=== PATIENT | female | born 1985 | race Caucasian/White ===

== ENCOUNTER 2017-11-03 21:06 | Inpatient (IN) ==
[2017-11-03] MEDS ORDERED: 0.9 % Sodium Chloride 1,000 ML IVC ONE (21:11)
--- NOTE | 2017-11-03 21:20 | Emergency Department Note ---
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 I agree with the documented findings, disposition and treatment plan as described except to the extent set forth below. ED attending note: Patient seen with emergency medicine resident Dr. Daniel Fowler. We independently evaluated the patient. We independently had face-to- face contact with the patient. Please see a copy of his note for details of the history and physical, evaluation, management and disposition of this emergency Department patient. Briefly: 31-year-old female brought in by EMS after being found new running around in her house or outside of her home with her dog lying on the grass. When EMS came she try to run away. She was apprehended quickly she was cooperative IV was started. Does have history of methamphetamine abuse in the past. Of which because of that she has had custody of her son taken from her. Patient will be medically cleared and evaluated by mental health services. Disposition pending Time: 21:19
[2017-11-03 21:37] LABS: Basophils % 0.2 %; Eosinophils % 0.4 %; Hematocrit 37.7 % (35.3-44.9); Hemoglobin 13.2 g/dL (11.5-15.4); Immature Granulocytes % 0.4 % (0-4); Lymphocytes # 2.3 K/mcL (0.6-4.6); Mean Corpuscular Hemoglobin 31.4 pg (28.0-33.3); Mean Corpuscular Volume 89.8 fL (83.0-100.0); Mean Platelet Volume 10.2 fL (9.4-12.4); Monocytes # 0.7 K/mcL (0.0-1.3); Monocytes % 8.7 %; Neutrophils # 5.3 K/mcL (1.6-8.9); Platelet Count 291 K/mcL (140-400); Red Cell Distribution Width 12.6 % (11.5-14.5); Segmented Neutrophils % 63.3 %
[2017-11-03 21:53] LABS: Acetaminophen < 10 mcg/mL (10-20); BUN/Creatinine Ratio 27 (6-26); Blood Urea Nitrogen 18 mg/dL (6-20); Calcium 8.6 mg/dL (8.6-10.3); Carbon Dioxide 19 mEq/L (23-29); Chloride 109 mEq/L (98-107); Ethanol < 10 mg/dL (Less than 10); Glucose 93 mg/dL (70-105); Osmolality,Calculated 290 (280-300); Potassium 3.6 mEq/L (3.5-5.1); Salicylate < 2.5 mg/dL (15.0-30.0); Sodium 139 mEq/L (136-145); eGFR For African Americans > 60 (> 60); eGFR For Non-African Americans > 60 (> 60)
[2017-11-03 22:04] LABS: Bilirubin,Urine Negative (Negative); Blood,Urine Large (Negative); Clarity,Urine Turbid (Clear); Color,Urine Yellow (Yellow); Glucose,Urine (UA) Normal (Normal); Ketones,Urine >=160 mg/dL (Negative); Leukocyte Esterase,Urine Trace (Negative); Nitrite,Urine Negative (Negative); PH,Urine 5.5 pH Units (5.0-8.0); Protein,Urine 30 mg/dL (Neg-Trace); Specific Gravity,Urine > 1.030 (1.010-1.025); Urobilinogen,Urine Normal (Normal)
[2017-11-03 22:06] LABS: Bacteria,Urine Moderate per hpf (None-Few); Hyaline Casts,Urine Few per lpf (None-Few); Squamous Epithelial Cell,Urine Many per lpf (None-Few)
--- NOTE | 2017-11-03 22:14 | Emergency Department Note ---
Disposition Clinical Impression: Substance abuse Disposition: Still a Patient Referrals: NONE,PCP [Primary Care Provider] - Forms: ED Satisfaction Letter General Adult HPI - General Chief complaint: ED Altered Mental Status Stated complaint: AMS Time Seen by Provider: 11/03/17 21:11 Source: patient, EMS Mode of arrival: EMS Limitations: no limitations Nursing Notes Reviewed: Yes Vital Signs Reviewed: Yes - History of Present Illness HPI Narrative: 32-year-old female presents via EMS for concerns of altered mental status. Per reports from EMS patient was found naked in front of her house by [place]. Supposedly when the patient saw the deputies she got up and ran but was stopped. Patient was requested to put on closed. Concern for substance abuse. Patient does recall the events today and states that she is been tired over the past several days and was sleeping. She denies any alcohol or recreational drug use today. She admits to using ice 2 days ago. Patient has a history of methamphetamine abuse evident by her child be taken away from her. She denies any suicidal or homicidal ideations. She denies any hallucinations. She denies any injury or pain at this time. Pain Scale: 0 - Related Data Previous Rx's Medication Instructions Recorded Orphenadrine [Norflex] 100 mg PO Q12HR PRN #10 tablet.er 04/15/17 Allergies Allergy/AdvReac Type Severity Reaction Status Date / Time No Known Allergies Allergy Verified 04/15/17 07:37 All systems ED: reviewed and negative except as stated. Review of Systems: As Per HPI Constitutional: Denies: fever, chills Cardiovascular: Denies: chest pain Respiratory: Denies: dyspnea Gastrointestinal: Denies: abdominal pain Neurological: Denies: headache Psychiatric: Denies: suicidal thoughts, homicidal thoughts Past Medical History - Past Medical History Attestation: Yes The following information was validated with the patient. 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 Absent : tenderness, rash - Respiratory Respiratory exam: Present: normal lung sounds bilaterally. Absent: respiratory distress, wheezes - Cardiovascular Cardiovascular exam: Present: regular rate, normal rhythm, normal heart sounds - Abdominal Exam Abdominal exam: Present: soft, Non-Tender, normal bowel sounds. Absent: tenderness, distention, guarding, rebound, rigidity - Extremities Exam Extremities exam: Present: normal inspection, full ROM, normal capillary refill. Absent: tenderness, pedal edema - Neurological Exam Neurological exam: Present: alert, oriented X3, CN II-XII intact - Expanded Neurological Exam Patient oriented to: Present: person, place, time Speech: Present: fluid speech Cranial nerves: EOM function (II, III, IV, ): Normal, facial sensation (V): Normal, facial palsy (VII): Normal, gag reflex (IX): Normal, spinal accessory function (XI): Normal, tongue deviation (XII): Normal Motor strength - LUE: 5/5 Motor strength - RUE: 5/5 Motor strength - LLE: 5/5 Motor strength - RLE: 5/5 - Psychiatric Psychiatric exam: Present: normal mood, flat affect. Absent: depressed, anxious , homicidal ideation, suicidal ideation - Skin Skin exam: Present: warm, dry, intact, normal color. Absent: rash, cyanosis, diaphoresis Course Course Narrative: Patient will be evaluated and medically cleared for possible evaluation. She denies any suicidal ideation. She is otherwise awake alert and oriented person place and time. On physical exam is otherwise unremarkable. She has no neck tenderness. She moves all for extremities without difficulty. Patient was amatory to give a urine sample. She is otherwise cooperative at this time. - Reevaluation(s) Reevaluation #1: urinalysis shows ketones and positive blood without RBCs. No signs of renal insufficiency. Will fluid hydrated her with normal saline and also check a CPK. Unsure of how long she has been down on the ground. Otherwise her urine drug screen was positive for amphetamine. Will have the patient evaluated by 1[facility] psychiatry. Time: 22:35 Reevaluation #2: Patient will be signed out to nighttime physician is Dr. Holder and Dr. Ric pending 1A psychiatric evaluation and final disposition. Impression is substance abuse. Vital Signs Temperature 98.4 F 11/03/17 21:15 Pulse Rate 83 11/03/17 21:15 Respiratory Rate 22 11/03/17 21:15 Blood Pressure 120/72 11/03/17 21:15 O2 Sat by Pulse Oximetry 98 11/03/17 21:15 Temperature 98.4 F 11/03/17 21:15 Pulse Rate 83 11/03/17 21:15 Respiratory Rate 22 11/03/17 21:15 Blood Pressure 120/72 11/03/17 21:15 O2 Sat by Pulse Oximetry 98 11/03/17 21:15 Oxygen Delivery Oxygen Delivery Room Air Medical Decision Making - MDM Narrative Medical decision making narrative: Patient was discussed with my attending physician who agrees with ED management and final disposition. They independently evaluated the patient. Please refer to their attestation to this encounter for additional information. This note was generated by [employer] voice recognition software and as a result grammatical or spelling errors may occur using this program. - Medical Records Medical records reviewed: Yes I reviewed the patient's medical records. - Lab Data Lab results reviewed: Yes I reviewed the patient's lab results. Result diagrams: 11/03/17 21:24 11/03/17 21:24 Lab Results 11/03/17 11/03/17 11/03/17 Range/Units 21:24 21:24 21:24 WBC 8.3 (4.3-11.1) K/mcL RBC 4.20 (3.82-4.97) M/mcL Hgb 13.2 (11.5-15.4) g/dL Hct 37.7 (35.3-44.9) % MCV 89.8 (83.0-100.0) fL MCH 31.4 (28.0-33.3) pg MCHC 35.0 (31.6-35.5) g/dL RDW 12.6 (11.5-14.5) % Plt Count 291 (140-400) K/mcL MPV 10.2 (9.4-12.4) fL Immature Gran % 0.4 (0-4) % Seg Neutrophils % 63.3 % Lymphocytes % 27.0 % Monocytes % 8.7 % Eosinophils % 0.4 % Basophils % 0.2 % Neutrophils # 5.3 (1.6-8.9) K/mcL Lymphocytes # 2.3 (0.6-4.6) K/mcL Monocytes # 0.7 (0.0-1.3) K/mcL Eosinophils # 0.0 (0.0-0.6) K/mcL Basophils # 0.0 (0.0-0.2) K/mcL Sodium 139 (136-145) mEq/L Potassium 3.6 (3.5-5.1) mEq/L Chloride 109 H (98-107) mEq/L Carbon Dioxide 19 L (23-29) mEq/L BUN 18 (6-20) mg/dL Creatinine 0.67 (0.60-1.20) mg/dL Est GFR ( Amer) > 60 (> 60) Est GFR (Non-Af Amer) > 60 (> 60) BUN/Creatinine Ratio 27 H (6-26) Glucose 93 (70-105) mg/dL Calculated Osmolality 290 (280-300) Calcium 8.6 (8.6-10.3) mg/dL TSH (0.340-5.600) mcIU/mL Serum , Qual Negative (Negative) Urine Color (Yellow) Urine Clarity (Clear) Urine pH (5.0-8.0) pH Units Ur Specific [place] (1.010-1.025) Urine Protein (Neg-Trace) mg/dL Urine Glucose (UA) (Normal) mg/dL Urine Ketones (Negative) mg/dL Urine Blood (Negative) Urine Nitrite (Negative) Urine Bilirubin (Negative) Urine Urobilinogen (Normal) mg/dL Ur Leukocyte Esterase (Negative) Urine Microscopic RBC (0-3) per hpf Urine Microscopic WBC (0-3) per hpf Ur Squamous Epith Cells (None-Few) per lpf Urine Bacteria (None-Few) per hpf Hyaline Casts (None-Few) per lpf Salicylates < 2.5 L (15.0-30.0) mg/dL Urine Opiates Screen (Bvhvwd=213) ng/mL Acetaminophen < 10 L (10-20) mcg/mL Ur Barbiturates Screen (Xkllqp=990) ng/mL Ur Phencyclidine Scrn (Cutoff=25) ng/mL Ur Amphetamines Screen (Qkjfhx=2052) ng/mL U Benzodiazepines Scrn (Jiqbwt=609) ng/mL Urine Cocaine Screen (Cutoff= 300) ng/mL U Marijuana (THC) Screen (Cutoff = 50) ng/mL Ethyl Alcohol < 10 (Less than 10) mg/dL 11/03/17 11/03/17 11/03/17 Range/Units 21:24 21:50 21:50 WBC (4.3-11.1) K/mcL RBC (3.82-4.97) M/mcL Hgb (11.5-15.4) g/dL Hct (35.3-44.9) % MCV (83.0-100.0) fL MCH (28.0-33.3) pg MCHC (31.6-35.5) g/dL RDW (11.5-14.5) % Plt Count (140-400) K/mcL MPV (9.4-12.4) fL Immature Gran % (0-4) % Seg Neutrophils % % Lymphocytes % % Monocytes % % Eosinophils % % Basophils % % Neutrophils # (1.6-8.9) K/mcL Lymphocytes # (0.6-4.6) K/mcL Monocytes # (0.0-1.3) K/mcL Eosinophils # (0.0-0.6) K/mcL Basophils # (0.0-0.2) K/mcL Sodium (136-145) mEq/L Potassium (3.5-5.1) mEq/L Chloride (98-107) mEq/L Carbon Dioxide (23-29) mEq/L BUN (6-20) mg/dL Creatinine (0.60-1.20) mg/dL Est GFR ( Amer) (> 60) Est GFR (Non-Af Amer) (> 60) BUN/Creatinine Ratio (6-26) Glucose (70-105) mg/dL Calculated Osmolality (280-300) Calcium (8.6-10.3) mg/dL TSH 0.924 (0.340-5.600) mcIU/mL Serum , Qual (Negative) Urine Color Yellow (Yellow) Urine Clarity Turbid A (Clear) Urine pH 5.5 (5.0-8.0) pH Units Ur Specific [place] > 1.030 H (1.010-1.025) Urine Protein 30 H (Neg-Trace) mg/dL Urine Glucose (UA) Normal (Normal) mg/dL Urine Ketones >=160 H (Negative) mg/dL Urine Blood Large H (Negative) Urine Nitrite Negative (Negative) Urine Bilirubin Negative (Negative) Urine Urobilinogen Normal (Normal) mg/dL Ur Leukocyte Esterase Trace H (Negative) Urine Microscopic RBC 0-3 (0-3) per hpf Urine Microscopic WBC 5-15 H (0-3) per hpf Ur Squamous Epith Cells Many H (None-Few) per lpf Urine Bacteria Moderate H (None-Few) per hpf Hyaline Casts Few (None-Few) per lpf Salicylates (15.0-30.0) mg/dL Urine Opiates Screen Negative (Pfvsyf=117) ng/mL Acetaminophen (10-20) mcg/mL Ur Barbiturates Screen Negative (Hkrfai=689) ng/mL Ur Phencyclidine Scrn Negative (Cutoff=25) ng/mL Ur Amphetamines Screen Positive H (Jgalaw=4965) ng/mL U Benzodiazepines Scrn Negative (Jlvnne=057) ng/mL Urine Cocaine Screen Negative (Cutoff= 300) ng/mL U Marijuana (THC) Screen Negative (Cutoff = 50) ng/mL Ethyl Alcohol (Less than 10) mg/dL S.B.A.R. - S.B.A.R. Situation: Demographics, MOA Background: Presenting Complaint, Relevant PMH, Meds, & Allergies Assessment: Vital Signs, Course and respsone to treatment, Exam Concerns, Patient/Family Expectation, Pertinant Lab Results, Outstanding Labs Recommendation: Barrier(s) to disposition, Recommendation based on pending studies, treatments, or consults S.B.A.R. Report Given to: Dr. Holder and Dr. Larios S.B.A.R. Repor Time: 23:00
[2017-11-03 22:15] LABS: Amphetamine Screen,Urine Positive ng/mL (Cutoff=1000); Barbiturate Screen,Urine Negative ng/mL (Cutoff=200); Benzodiazepines Screen,Urine Negative ng/mL (Cutoff=200); Cannabinoid Screen,Urine Negative ng/mL (Cutoff = 50); Cocaine Screen,Urine Negative ng/mL (Cutoff= 300); Opiate Screen,Urine Negative ng/mL (Cutoff=300); Phencyclidine Screen,Urine Negative ng/mL (Cutoff=25)
[2017-11-03 22:16] LABS: RBC,Urine 0-3 per hpf (0-3)
[2017-11-03 23:44] LABS: Creatine Kinase 269 Units/L (30-223)
[2017-11-04] MEDS ORDERED: MOM Conc 10 ML UD.LIQ PO PRN (01:11)
[2017-11-04] MEDS ORDERED: *HR* LORazepam 1 MG TABLET PO PRN (01:11)
[2017-11-04] MEDS ORDERED: *HR* LORazepam 2 MG/ML VIAL IM PRN (01:11)
[2017-11-04] MEDS ORDERED: Haloperidol Lactate 5 MG/ML VIAL IM PRN (01:11)
[2017-11-04] MEDS ORDERED: Mag Hydrox/Al Hydrox/Simeth 30 ML UDC PO PRN (01:11)
--- NOTE | 2017-11-04 11:14 | Psychiatry History & Physical ---
Date of Encounter: 11/04/17 Time of Encounter: 10:35 History of Present Illness Patient Stated Chief Complaint: Altered mental status Medicare Admission Attestation: For traditional Medicare patients the provided hospital inpatient services are reasonable and necessary and in the case of services not specified as inpatient -only under 42 CFR 419.22 (n), that they are appropriately provided as inpatient services in accordance 42 CFR 412.3. For Critical Access Hospital the patient may reasonably be expected to be discharged or transferred to a hospital within 96 hours after admission to the Critical Access Hospital. Admitted From: Emergency Dept History of Present Illness: Ms. Sanon is a 32 year old female admitted from the emergency department with altered mental status. She was brought into the hospital by EMS when she was found lying naked in front of her house, she ran away when the lease out man tried to apprehend her. UDS was positive for methamphetamine. Patient denied any psychiatric history or treatment. She used meth on and off to stay awake. Patient was very guarded did not provide any history information to the nursing staff. She reports to me that she is dealing with multiple stressors including becoming homeless after being kicked out of the house by her ex-, her son who is 17 years old is diagnosed with cancer and live with her mother at this time. She is unemployed and overwhelmed by her current situation and unable to make decisions. She denied any history of suicide or psychiatric treatment. Past Med Surg Social Fam HX - Past Medical History Medical history: arthritis - Past Psychiatric History Psychiatric history: Reports: no psych history - Social History Smoking Status: Current every day smoker Smokeless Tobacco Status: No Alcohol use: occasionally Drug use: none Medications & Allergies Orphenadrine [Norflex] 100 mg PO Q12HR PRN #10 tablet.er 04/15/17 [Rx] 3 Allergy/AdvReac Type Severity Reaction Status Date / Time No Known Allergies Allergy Verified 04/15/17 07:37 Review of Systems Psychiatric: Reports: depression, anxiety, abnormal sleep pattern, anhedonia Exam - HEENT Head exam IM: Present: atraumatic Eye exam IM: Present: EOMI, normal appearance, PERRL ENT exam IM: Present: normal exam - Neurological Neurological exam: Present: CN II-XII intact - Respiratory Respiratory exam IM: Present: CTAB - GI/Abdominal GI/Abdominal exam IM: Present: normal bowel sounds, soft. Absent: tenderness - Extremities Extremities exam IM: Present: full ROM - Skin Skin exam IM: Present: dry, warm - Constitutional Vitals: Temp Pulse Resp BP Pulse Ox 98.6 F 87 16 91/59 98 11/04/17 09:00 11/04/17 09:00 11/04/17 09:00 11/04/17 09:00 11/03/17 21:15 General appearance: age & developmentally appropriate, well-groomed, well- nourished, obese - Musculoskeletal Gait: normal Station: relaxed Strength & Tone: normal for patient - Psychiatric Patient Orientation: Yes Person, Yes Time, Yes Place Level of alertness: Alert, Sedated Behavior: calm, cooperative, anxious, withdrawn Psychomotor activity: Slowed Eye Contact: Minimal Contact Mood Description: Euthymic/stable, Depressed Affect description: congruent with mood, blunted, dysphoric Speech Volume: Normal Speech pattern: normal rate, normal rhythm, normal tone, fluent, slowed, limited Language & Vocabulary: consistent with education Thought Process: Linear, Goal Oriented, Slowed Thinking Thought Content: No Suicidal ideation, No Homicidal ideation, No Overt delusions Perceptual Disturbances: No Auditory hallucinations, No Visual hallucinations Attention Span Ability: Capable of Focused Attention Memory Description: Grossly Intact Patient Reliability: Reliable Historian Fund of knowledge: Yes abstraction ability, Yes average, Yes aware of current events Intelligence Estimate: Average Judgment: Limited Insight: Partial Results - Labs Labs: Laboratory Last Values WBC 8.3 K/mcL (4.3-11.1) 11/03/17 21:24 RBC 4.20 M/mcL (3.82-4.97) 11/03/17 21:24 Hgb 13.2 g/dL (11.5-15.4) 11/03/17 21:24 Hct 37.7 % (35.3-44.9) 11/03/17 21:24 MCV 89.8 fL (83.0-100.0) 11/03/17 21:24 MCH 31.4 pg (28.0-33.3) 11/03/17 21:24 MCHC 35.0 g/dL (31.6-35.5) 11/03/17 21:24 RDW 12.6 % (11.5-14.5) 11/03/17 21:24 Plt Count 291 K/mcL (140-400) 11/03/17 21:24 MPV 10.2 fL (9.4-12.4) 11/03/17 21:24 Immature Gran % 0.4 % (0-4) 11/03/17 21:24 Seg Neutrophils % 63.3 % 11/03/17 21:24 Lymphocytes % 27.0 % 11/03/17 21:24 Monocytes % 8.7 % 11/03/17 21:24 Eosinophils % 0.4 % 11/03/17 21:24 Basophils % 0.2 % 11/03/17 21:24 Neutrophils # 5.3 K/mcL (1.6-8.9) 11/03/17 21:24 Lymphocytes # 2.3 K/mcL (0.6-4.6) 11/03/17 21:24 Monocytes # 0.7 K/mcL (0.0-1.3) 11/03/17 21:24 Eosinophils # 0.0 K/mcL (0.0-0.6) 11/03/17 21:24 Basophils # 0.0 K/mcL (0.0-0.2) 11/03/17 21:24 Sodium 139 mEq/L (136-145) 11/03/17 21:24 Potassium 3.6 mEq/L (3.5-5.1) 11/03/17 21:24 Chloride 109 mEq/L (98-107) H 11/03/17 21:24 Carbon Dioxide 19 mEq/L (23-29) L 11/03/17 21:24 BUN 18 mg/dL (6-20) 11/03/17 21:24 Creatinine 0.67 mg/dL (0.60-1.20) 11/03/17 21:24 Est GFR ( Amer) > 60 (> 60) 11/03/17 21:24 Est GFR (Non-Af Amer) > 60 (> 60) 11/03/17 21:24 BUN/Creatinine Ratio 27 (6-26) H 11/03/17 21:24 Glucose 93 mg/dL (70-105) 11/03/17 21:24 Calculated Osmolality 290 (280-300) 11/03/17 21:24 Calcium 8.6 mg/dL (8.6-10.3) 11/03/17 21:24 Creatine Kinase 269 Units/L (30-223) H 11/03/17 21:24 TSH 0.924 mcIU/mL (0.340-5.600) 11/03/17 21:24 Serum , Qual Negative (Negative) 11/03/17 21:24 Urine Color Yellow (Yellow) 11/03/17 21:50 Urine Clarity Turbid (Clear) A 11/03/17 21:50 Urine pH 5.5 pH Units (5.0-8.0) 11/03/17 21:50 Ur Specific [place] > 1.030 (1.010-1.025) H 11/03/17 21:50 Urine Protein 30 mg/dL (Neg-Trace) H 11/03/17 21:50 Urine Glucose (UA) Normal mg/dL (Normal) 11/03/17 21:50 Urine Ketones >=160 mg/dL (Negative) H 11/03/17 21:50 Urine Blood Large (Negative) H 11/03/17 21:50 Urine Nitrite Negative (Negative) 11/03/17 21:50 Urine Bilirubin Negative (Negative) 11/03/17 21:50 Urine Urobilinogen Normal mg/dL (Normal) 11/03/17 21:50 Ur Leukocyte Esterase Trace (Negative) H 11/03/17 21:50 Urine Microscopic RBC 0-3 per hpf (0-3) 11/03/17 21:50 Urine Microscopic WBC 5-15 per hpf (0-3) H 11/03/17 21:50 Ur Squamous Epith Cells Many per lpf (None-Few) H 11/03/17 21:50 Urine Bacteria Moderate per hpf (None-Few) H 11/03/17 21:50 Hyaline Casts Few per lpf (None-Few) 11/03/17 21:50 Salicylates < 2.5 mg/dL (15.0-30.0) L 11/03/17 21:24 Urine Opiates Screen Negative ng/mL (Hlvkau=898) 11/03/17 21:50 Acetaminophen < 10 mcg/mL (10-20) L 11/03/17 21:24 Ur Barbiturates Screen Negative ng/mL (Nckgve=131) 11/03/17 21:50 Ur Phencyclidine Scrn Negative ng/mL (Cutoff=25) 11/03/17 21:50 Ur Amphetamines Screen Positive ng/mL (Fywoll=6662) H 11/03/17 21:50 U Benzodiazepines Scrn Negative ng/mL (Phnbxe=507) 11/03/17 21:50 Urine Cocaine Screen Negative ng/mL (Cutoff= 300) 11/03/17 21:50 U Marijuana (THC) Screen Negative ng/mL (Cutoff = 50) 11/03/17 21:50 Ethyl Alcohol < 10 mg/dL (Less than 10) 11/03/17 21:24 Assessment and Plan (1) Major depressive disorder, single episode, unspecified Current visit: Yes Status: Acute Plan: Admit inpatient for safety and stabilization, Close observation, Suicide Precautions per unit protocol, Encourage participation in unit milieu, Group Therapy, Monitor sleep, Monitor appetite Risks, benefits, side effects, alternatives discussed w/pt: Yes Patient agreeable to treatment: Yes Estimated Length of Stay (Days): 5 Qualifiers: Qualified Code(s): F32.9 - Major depressive disorder, single episode, unspecified (2) Methamphetamine abuse Current visit: Yes Status: Acute Plan: Admit inpatient for safety and stabilization, Close observation, Suicide Precautions per unit protocol, Encourage participation in unit milieu, Group Therapy, Monitor sleep, Monitor appetite Risks, benefits, side effects, alternatives discussed w/pt: Yes Patient agreeable to treatment: Yes
[2017-11-04] MEDS: Venlafaxine XR (24 HR) 75 MG CAP.ER.24H PO SCH (14:03)
[2017-11-05] MEDS: traZODone 50 MG TABLET PO PRN ×2 (02:45→21:28)
[2017-11-05] MEDS: hydrOXYzine pamoate 25 MG CAPSULE PO PRN ×2 (02:46→21:28)
--- NOTE | 2017-11-05 10:03 | Psychiatry Progress Note ---
Date of Encounter: 11/05/17 Time of Encounter: 10:00 Subjective Interval history: Patient seen for follow-up. Case discussed with nursing staff. She could not complete assessment with social welfare administrator and asked her to call her mom. She is more alert, less confused. She reports feeling dizzy at times. She is unable to decided her plans after the hospital. She reports she could not sleep. Denies any hallucination or suicidal ideation. Compliant with medication. Encouraged to participate in activities. Review of Systems Psychiatric: Reports: depression, anxiety, abnormal sleep pattern, anhedonia Results - Vital Signs Vital Signs: Temp Pulse Resp BP Pulse Ox 99.2 F 67 16 111/57 98 11/04/17 21:00 11/04/17 21:00 11/04/17 21:11/04/17 21:00 11/03/17 21:15 Assessment and Plan (1) Major depressive disorder, single episode, unspecified Current visit: Yes Status: Acute Plan: Continue hospitalization, Close observation, Suicide Precautions per unit protocol, Encourage participation in unit milieu, Group Therapy, Monitor sleep, Monitor appetite Risks, benefits, side effects, alternatives discussed w/pt: Yes Patient agreeable to treatment: Yes Qualifiers: Qualified Code(s): F32.9 - Major depressive disorder, single episode, unspecified (2) Methamphetamine abuse Current visit: Yes Status: Acute Plan: Continue hospitalization, Close observation, Suicide Precautions per unit protocol, Encourage participation in unit milieu, Group Therapy, Monitor sleep, Monitor appetite Risks, benefits, side effects, alternatives discussed w/pt: Yes Patient agreeable to treatment: Yes Consult Discharge Plan - Plan Referrals: NONE,PCP [Primary Care Provider] - Psychiatry Exam - Constitutional Vitals: Temp Pulse Resp BP Pulse Ox 99.2 F 67 16 111/57 98 11/04/17 21:00 11/04/17 21:00 11/04/17 21:11/04/17 21:00 11/03/17 21:15 General appearance: age & developmentally appropriate, well-groomed, well- nourished - Musculoskeletal Gait: normal Station: relaxed Strength & Tone: normal for patient - Psychiatric Patient Orientation: Yes Person, Yes Time, Yes Place Level of alertness: Alert Behavior: calm, cooperative, guarded, withdrawn Psychomotor activity: Normal Eye Contact: Maintains Eye Contact Mood Description: Euthymic/stable, Depressed Affect description: congruent with mood, blunted Speech Volume: Normal Speech pattern: normal rate, normal rhythm, normal tone, fluent, spontaneous Language & Vocabulary: consistent with education Thought Process: Linear, Goal Oriented Thought Content: No Suicidal ideation, No Homicidal ideation, No Overt delusions Perceptual Disturbances: No Auditory hallucinations, No Visual hallucinations Attention Span Ability: Capable of Focused Attention Memory Description: Grossly Intact Patient Reliability: Reliable Historian Fund of knowledge: Yes abstraction ability, Yes aware of current events Intelligence Estimate: Average Judgment: Limited Insight: Partial
[2017-11-05] MEDS: Venlafaxine XR (24 HR) 75 MG CAP.ER.24H PO SCH (10:08)
[2017-11-05] MEDS: Acetaminophen 325 MG TABLET PO PRN (21:28)
[2017-11-06] MEDS: Venlafaxine XR (24 HR) 75 MG CAP.ER.24H PO SCH (08:52)
--- NOTE | 2017-11-06 11:11 | Psychiatry Progress Note ---
Date of Encounter: 11/06/17 Time of Encounter: 10:20 Subjective Interval history: Patient seen for follow-up. Case discussed with nursing staff. She is alert, denies suicidal ideation. Compliant with medication. Overwhelmed by her life situation including taking care of her son, losing housing and relationship issues. I encouraged her to discuss those issues with her social work case manager tomorrow. Review of Systems Psychiatric: Reports: depression, anxiety, abnormal sleep pattern, anhedonia Results - Vital Signs Vital Signs: Temp Pulse Resp BP Pulse Ox 97.3 F L 83 16 104/72 98 11/06/17 08:57 11/06/17 08:57 11/06/17 08:57 11/06/17 08:57 11/03/17 21:15 Assessment and Plan (1) Major depressive disorder, single episode, unspecified Current visit: Yes Status: Acute Plan: Continue hospitalization, Close observation, Suicide Precautions per unit protocol, Encourage participation in unit milieu, Group Therapy, Monitor sleep, Monitor appetite Risks, benefits, side effects, alternatives discussed w/pt: Yes Patient agreeable to treatment: Yes Qualifiers: Qualified Code(s): F32.9 - Major depressive disorder, single episode, unspecified (2) Methamphetamine abuse Current visit: Yes Status: Acute Plan: Continue hospitalization, Close observation, Suicide Precautions per unit protocol, Encourage participation in unit milieu, Group Therapy, Monitor sleep, Monitor appetite Risks, benefits, side effects, alternatives discussed w/pt: Yes Patient agreeable to treatment: Yes Consult Discharge Plan - Plan Referrals: NONE,PCP [Primary Care Provider] - Psychiatry Exam - Constitutional Vitals: Temp Pulse Resp BP Pulse Ox 97.3 F L 83 16 104/72 98 11/06/17 08:57 11/06/17 08:57 11/06/17 08:57 11/06/17 08:57 11/03/17 21:15 General appearance: age & developmentally appropriate, well-groomed, well- nourished, obese - Musculoskeletal Gait: normal Station: relaxed Strength & Tone: normal for patient - Psychiatric Patient Orientation: Yes Person, Yes Time, Yes Place Level of alertness: Alert Behavior: calm, cooperative, anxious, withdrawn Psychomotor activity: Normal Eye Contact: Maintains Eye Contact Mood Description: Euthymic/stable, Depressed Affect description: congruent with mood, blunted Speech Volume: Normal Speech pattern: normal rate, normal rhythm, normal tone, fluent, spontaneous, slowed Language & Vocabulary: consistent with education Thought Process: Linear, Goal Oriented, Thought Blocking Thought Content: No Suicidal ideation, No Homicidal ideation, No Overt delusions Perceptual Disturbances: No Auditory hallucinations, No Visual hallucinations Attention Span Ability: Capable of Focused Attention Memory Description: Grossly Intact Patient Reliability: Reliable Historian Fund of knowledge: Yes abstraction ability, Yes aware of current events Intelligence Estimate: Average Judgment: Limited Insight: Partial
[2017-11-06] MEDS: traZODone 50 MG TABLET PO PRN (21:11)
[2017-11-06] MEDS: Nicotine 2 MG GUM BC PRN (21:21)
[2017-11-07] MEDS: Acetaminophen 325 MG TABLET PO PRN (08:43)
[2017-11-07] MEDS: Venlafaxine XR (24 HR) 75 MG CAP.ER.24H PO SCH (08:43)
--- NOTE | 2017-11-07 12:15 | Psychiatry Progress Note ---
Date of Encounter: 11/07/17 Time of Encounter: 12:05 Subjective Interval history: When I asked the patient why she was here she stated "I am here because the lead software tester said I was walking around naked my front yard". Patient states that she does remember doing that and she understands why they brought her in. She is not aware of any criminal charges being pressed. She acknowledges that she had been using meth, which had her elevated mood and she was doing impulsive, abnormal things. She states that she had gone for an extended period time using the meth not having any sleep. She states it helps her not feel depressed and be productive. She feels better having been the hospital. She states that she is sleeping better and overall feeling better emotionally. She talks about the stress over having a son in hospice who has cancer and potentially could be dying soon. Currently her mother has custody and is taking care the boy with hospice. She states that she has sporadically been seen at [facility] and knows she needs to get back into therapy. She states that she knows her depression is getting worse with bouts of anxiety. She was started on Effexor. She denies any adverse side effects of starting the Effexor and feels that it will be helpful. She states she feels more hopeful knowing that she can get better and take care of her son better. She states that she understands not to be using/abusing drugs. She is aware of twelve-step programs for support. She states that she will get that support too , outside with [facility] having a therapist. She states that she is feeling better. She denies any suicidal/homicidal ideation. She states her mood is more stable. She denies any auditory or visual hallucinations. Review of Systems Psychiatric: Reports: depression, anxiety, abnormal sleep pattern, anhedonia Results - Vital Signs Vital Signs: Temp Pulse Resp BP Pulse Ox 97.7 F 72 16 105/56 98 11/07/17 09:00 11/07/17 09:00 11/07/17 09:00 11/07/17 09:00 11/03/17 21:15 Assessment and Plan (1) Major depressive disorder, single episode, unspecified Current visit: Yes Status: Acute Plan: Continue hospitalization, Close observation, Suicide Precautions per unit protocol, Encourage participation in unit milieu, Group Therapy, Monitor sleep Risks, benefits, side effects, alternatives discussed w/pt: Yes (Continue Effexor) Patient agreeable to treatment: Yes Qualifiers: Active/Remission status: in partial remission Qualified Code(s): F32.4 - Major depressive disorder, single episode, in partial remission (2) Methamphetamine abuse Current visit: Yes Status: Acute Plan: Close observation Risks, benefits, side effects, alternatives discussed w/pt: Yes Patient agreeable to treatment: Yes (Therapy) Consult Discharge Plan - Plan [facility] - 11/14/17 1:00 pm (The above appointment is with Ailyn Mcghee for outpatient mental health counselling. Please bring completed [facility] intake packet that you received at the hospital, photo ID, insurance card and proof of income. If you need to cancel/reschedule, please call at least 24 hours in advance.) Hilario Champion MD [Non-Partnered Physician] - 11/21/17 3:00 pm (The above appointment with Dr. Champion is for primary care.) Psychiatry Exam - Constitutional Vitals: Temp Pulse Resp BP Pulse Ox 97.7 F 72 16 105/56 98 11/07/17 09:00 11/07/17 09:00 11/07/17 09:00 11/07/17 09:00 11/03/17 21:15 General appearance: age & developmentally appropriate, disheveled - Musculoskeletal Gait: normal Station: other Strength & Tone: normal for patient - Psychiatric Patient Orientation: Yes Person, Yes Time, Yes Place, Yes Circumstance Level of alertness: Sedated (appears tired) Behavior: anxious (mildly) Psychomotor activity: Normal Eye Contact: Maintains Eye Contact Mood Description: Anxious Affect description: congruent with mood Speech Volume: Normal Speech pattern: normal rate, normal rhythm, normal tone Language & Vocabulary: consistent with education Thought Process: Intact Thought Content: Yes Intact Attention Span Ability: Capable of Focused Attention Memory Description: Grossly Intact Patient Reliability: Questionable Historian Fund of knowledge: Yes abstraction ability Intelligence Estimate: Average Judgment: Fair Insight: Partial
[2017-11-07] MEDS: Nicotine 2 MG GUM BC PRN ×2 (14:38→20:33)
[2017-11-07] MEDS: traZODone 50 MG TABLET PO PRN (20:32)
[2017-11-07] MEDS: hydrOXYzine pamoate 25 MG CAPSULE PO PRN (20:33)
[2017-11-08] MEDS: Venlafaxine XR (24 HR) 75 MG CAP.ER.24H PO SCH (08:21)
[2017-11-08 09:32] VITALS: BP 104/59
--- NOTE | 2017-11-08 14:08 | Discharge Summary ---
Date of Encounter: 11/08/17 Time of Encounter: 14:00 Diagnosis - Discharge Diagnosis (1) Major depressive disorder, single episode, unspecified Status: Acute Qualifiers: Active/Remission status: in partial remission Qualified Code(s): F32.4 - Major depressive disorder, single episode, in partial remission (2) Methamphetamine abuse Status: Acute Medications - Discharge Medications Prescriptions: hydrOXYzine pamoate [HydrOXYzine Pamoate] 25 mg PO TID PRN 30 Days #30 capsule PRN Reason: Anxiety traZODone [TraZODone] 50 mg PO HS PRN 30 Days #30 tablet PRN Reason: Insomnia Venlafaxine XR (24 HR) [Effexor XR] 75 mg PO DAILY 30 Days #30 cap.er.24h Venlafaxine XR (24 HR) [Effexor XR] 75 mg PO DAILY 30 Days #30 cap.er.24h [Rx] hydrOXYzine pamoate [HydrOXYzine Pamoate] 25 mg PO TID PRN 30 Days #30 capsule 11/08/17 [Rx] traZODone [TraZODone] 50 mg PO HS PRN 30 Days #30 tablet 11/08/17 [Rx] 3 Allergy/AdvReac Type Severity Reaction Status Date / Time No Known Allergies Allergy Verified 11/05/17 10:05 Provider Date of admission: 11/04/17 11:16 Primary care physician: PCP NONE Psychiatry Exam - Constitutional Vitals: Temp Pulse Resp BP Pulse Ox 97.4 F L 73 16 104/59 98 11/08/17 09:00 11/08/17 09:00 11/08/17 09:00 11/08/17 09:00 11/03/17 21:15 General appearance: age & developmentally appropriate - Musculoskeletal Gait: normal Station: relaxed Strength & Tone: normal for patient - Psychiatric Patient Orientation: Yes Person, Yes Time, Yes Place, Yes Circumstance Level of alertness: Alert Behavior: calm Psychomotor activity: Normal Eye Contact: Maintains Eye Contact Mood Description: Euthymic/stable Affect description: congruent with mood Speech Volume: Normal Speech pattern: normal rate, normal rhythm, normal tone Language & Vocabulary: consistent with education Thought Process: Intact, Logical, Linear Thought Content: Yes Intact Attention Span Ability: Capable of Focused Attention Memory Description: Grossly Intact Patient Reliability: Questionable Historian Fund of knowledge: Yes abstraction ability Intelligence Estimate: Average Judgment: Good Insight: Partial Hospital Course Hospital course: Ms. Sanon is a 32 year old female who was admitted tot he unit after threats of self harm and mood instability. The patient tells me today, "I'm doin' pretty good today. I'm feeling better." She tells me that she slept good last night. She has been participating on the unit and learning things in group. She has done well with the medication adjustment and has been resting and thinking about her life. She states she knows her Amphetamine abuse contributes greatly to her emotional issues and know that it is not healthy for her. She states she is going to stop using. She is no longer feeling depressed or anxious. Her mood is stable as well as her thoughts. She denies SI/HI, A/V hallucinations. She was most likely going through withdrawal from amphetamine causing her emotional instability. She is utilizing her prn's of Vistaril and Trazodone and states they are helpful She is requesting them for discharge meds to help with she gets home. She knows about her follow up appointments and will follow through on them. Time spent discussing smoking cessation with patient: 3 to 10 minutes Does patient wish to continue nicotine replacement upon disc: No - Time Spent with Patient Total time spent providing and/or coordinating discharge services: 20 min Less than 30 minutes Assessment and Plan - Patient/Caregiver Discharge Instructions Activity: resume usual activities as tolerated Diet: regular diet - Follow up [facility] - 11/14/17 1:00 pm (The above appointment is with Ailyn Mcghee for outpatient mental health counselling. Please bring completed [facility] intake packet that you received at the hospital, photo ID, insurance card and proof of income. If you need to cancel/reschedule, please call at least 24 hours in advance.) Hilario Champion MD [Non-Partnered Physician] - 11/21/17 3:00 pm (The above appointment with Dr. Champion is for primary care.) Functional capacity at discharge: independent ambulation Overall status at discharge: Stable Disposition: Home, Self-Care Quality - Multiple Antipsychotics Patient discharged on 2 or more antipsychotic medications: No Procedures - Procedures Procedures: Medication Management, Crisis Stabilization, Supportive Therapy, Group Therapy
== END 2017-11-08 15:03 | disposition home or self-care (01) | DRG 751 ==
LOC: EMEROO 21:06 → 1ANU 21:06 → SUATTDRO 11-04 11:16
PROVIDERS: ADMIT Psychiatry & Neurology Psychiatry; ATTEND Psychiatry & Neurology Psychiatry